=== PATIENT | male | born 1990 | race Caucasian/White ===

== ENCOUNTER 2018-01-04 19:19 | Emergency (ER) | payer OTHER ==
--- NOTE | 2018-01-04 20:09 | ER ---
Nurse's Notes [facility] Name: Seamus Cole Jr Age: 27 yrs Sex: Male : 1990 Arrival Date: 01/04/2018 Time: 19:23 Bed 25 Private MD: Diagnosis: Low back pain Presentation: 01/04 19:31 Presenting complaint: Patient states: Pain and numbness from lower back to groin and aj buttocks since Monday. Patient reports issue began after being adjusted by chiropractor last week. Transition of care: patient was not received from another setting of care. Onset of symptoms was January 01, 2018. Risk Assessment: Do you want to hurt yourself or someone else? Patient reports no desire to harm self or others. Initial Sepsis Screen: Does the patient meet any 2 criteria? No. Patient's initial sepsis screen is negative. Does the patient have a suspected source of infection? No. Patient's initial sepsis screen is negative. Care prior to arrival: None. 19:31 Method Of Arrival: Wheelchair aj 19:31 Acuity: KEESHA 3 aj Triage Assessment: 19:34 General: Appears in no apparent distress. comfortable, Behavior is calm, cooperative, aj appropriate for age. Pain: Complains of pain in buttocks, pelvis, right leg and left leg. Neuro: Level of Consciousness is awake, alert, obeys commands, Oriented to person, place, time, situation, Appropriate for age. Respiratory: Airway is patent Respiratory effort is even, unlabored, Respiratory pattern is regular, symmetrical. Derm: Skin is intact, is healthy with good turgor, Skin is pink, warm \T\ dry. normal. Musculoskeletal: Circulation, motion, and sensation intact. Reports numbness in buttocks, pelvis, right leg and left leg pain in buttocks, pelvis, right leg and left leg. Historical: - Allergies: 19:34 No Known Allergies; aj - Home Meds: 19:34 Naproxen Oral [Active]; methylprednisolone 4 mg Oral tab [Active]; Flexeril 10 mg Oral aj tab [Active]; - PMHx: 19:34 Herniated Discs; aj - PSHx: 19:34 None; aj - Immunization history:: Adult Immunizations up to date. - Social history:: Smoking status: Patient/guardian denies using tobacco. - Ebola Screening: : Patient negative for fever greater than or equal to 101.5 degrees Fahrenheit, and additional compatible Ebola Virus Disease symptoms Patient denies exposure to infectious person Patient denies travel to an Ebola-affected area in the 21 days before illness onset No symptoms or risks identified at this time. Screenin:41 Abuse screen: Denies threats or abuse. Denies injuries from another. Nutritional rv screening: No deficits noted. Tuberculosis screening: No symptoms or risk factors identified. Fall Risk None identified. Assessment: 19:40 General: Appears in no apparent distress. uncomfortable, Behavior is calm, cooperative. rv Pain: Complains of pain in back. Neuro: Level of Consciousness is awake, alert, obeys commands, Oriented to person, place, time, situation. Cardiovascular: Capillary refill < 3 seconds. Respiratory: Airway is patent. GI: No signs and/or symptoms were reported involving the gastrointestinal system. : No signs and/or symptoms were reported regarding the genitourinary system. EENT: No signs and/or symptoms were reported regarding the EENT system. Derm: Skin is intact. Vital Signs: 19:34 BP 154 / 101; Pulse 80; Resp 20; Temp 98.6; Pulse Ox 99% on R/A; Weight 113.4 kg; aj Height 6 ft. 2 in. (187.96 cm); 19:34 Body Mass Index 32.10 (113.40 kg, 187.96 cm) aj ED Course: 19:23 Patient arrived in ED. ds1 19:33 Triage completed. aj 19:34 Arm band placed on right wrist. Patient placed in an exam room. aj 19:38 [facility] kb 19:38 Kevon Recio MD is Attending Physician. kb 19:41 Patient has correct armband on for positive identification. Bed in low position. Call rv light in reach. Side rails up X 1. Adult w/ patient. Pulse ox on. NIBP on. 20:22 No provider procedures requiring assistance completed. Patient did not have IV access rv during this emergency room visit. Administered Medications: 20:13 Drug: [place] (7.5 mg-325 mg) 1 tabs Route: PO; rv 20:22 Follow up: Response: Medication administered at discharge. rv 20:13 Drug: TORadol 60 mg Route: IM; Site: left deltoid; rv 20:22 Follow up: Response: Medication administered at discharge. rv Outcome: 20:07 Discharge ordered by . celine 20:22 Discharged to home via wheelchair. rv 20:22 Condition: good 20:22 Discharge instructions given to patient, Instructed on discharge instructions, follow up and referral plans. Demonstrated understanding of instructions, follow-up care. 20:23 Patient left the ED. rv Signatures: Shirin Hernandez, FLATWORK PRESSER-C FLATWORK PRESSER-An Rose RN RN Rossy Wilkins ds1 Álvaro Hardin, RN RN rv
--- NOTE | 2018-01-04 20:09 | EDPHYS ---
Physician Documentation [facility] Name: Seamus Cole Jr Age: 27 yrs Sex: Male : 1990 Arrival Date: 01/04/2018 Time: 19:23 Bed 25 Private MD: ED Physician Kevon Recio HPI: 01/04 20:01 This 27 yrs old Male presents to ER via Wheelchair with complaints of Back kb Pain, Numbness - LEG. 20:01 The patient presents with pain that is acute, with no known mechanism of injury. The kb symptoms are located in the low back, coccyx area. Onset: The symptoms/episode began/occurred 1 month(s) ago, and became worse 5 day(s) ago. The pain radiates to the right leg and left leg. Associated signs and symptoms: Pertinent positives: numbness, tingling, Pertinent negatives: abdominal pain, chest pain, constipation, dysuria, fever, headache, hematuria, incontinence, nausea, urinary retention, vomiting, weakness. The problem was sustained without known cause. Modifying factors: The patient symptoms are alleviated by remaining still, the patient symptoms are aggravated by any movement. Severity of symptoms: At their worst the symptoms were moderate, in the emergency department the symptoms are unchanged. The patient has not experienced similar symptoms in the past. The patient has been recently seen by a physician: the patient's primary care provider, a chiropractor, yesterday, with similar presenting complaints. Pt reports he started having mild low back pain about a month ago. Pain got worse 5 days ago, numbness and tingling to groin area and lateral legs started 2 days ago. Has had adjustments by chiropractor 3 times since last week, last time was yesterday. Has seen PCP and x-rays completed. Pt has appt with Dr Stephenson tomorrow and is supposed to get MRI. Denies incontinence, fever, trauma. Pain and numbness get better with rest, worsen with activity. Pt was given prescriptions for steroids, muscle relaxants, and anti-inflammatories yesterday.. Historical: - Allergies: 19:34 No Known Allergies; aj - Home Meds: 19:34 Naproxen Oral [Active]; methylprednisolone 4 mg Oral tab [Active]; Flexeril 10 mg Oral aj tab [Active]; - PMHx: 19:34 Herniated Discs; aj - PSHx: 19:34 None; aj - Immunization history:: Adult Immunizations up to date. - Social history:: Smoking status: Patient/guardian denies using tobacco. - Ebola Screening: : Patient negative for fever greater than or equal to 101.5 degrees Fahrenheit, and additional compatible Ebola Virus Disease symptoms Patient denies exposure to infectious person Patient denies travel to an Ebola-affected area in the 21 days before illness onset No symptoms or risks identified at this time. ROS: 20:01 Constitutional: Negative for fever, chills, and weight loss, Cardiovascular: Negative kb for chest pain, palpitations, and edema, Respiratory: Negative for shortness of breath, cough, wheezing, and pleuritic chest pain, Abdomen/GI: Negative for abdominal pain, nausea, vomiting, diarrhea, and constipation, : Negative for injury, bleeding, discharge, and swelling, MS/Extremity: Negative for injury and deformity, Skin: Negative for injury, rash, and discoloration. 20:01 Back: Positive for pain with movement, Negative for injury or acute deformity, decreased range of motion, pain at rest, radiated pain. 20:01 Neuro: Positive for numbness, tingling, of the pelvis, right leg and left leg. Exam: 20:07 Constitutional: This is a well developed, well nourished patient who is awake, alert, kb and in no acute distress. Head/Face: Normocephalic, atraumatic. Chest/axilla: Normal chest wall appearance and motion. Nontender with no deformity. No lesions are appreciated. Cardiovascular: Regular rate and rhythm with a normal S1 and S2. No gallops, murmurs, or rubs. Normal PMI, no JVD. No pulse deficits. Respiratory: Lungs have equal breath sounds bilaterally, clear to auscultation and percussion. No rales, rhonchi or wheezes noted. No increased work of breathing, no retractions or nasal flaring. Abdomen/GI: Soft, non-tender, with normal bowel sounds. No distension or tympany. No guarding or rebound. No evidence of tenderness throughout. Back: No spinal tenderness. No costovertebral tenderness. Full range of motion. Skin: Warm, dry with normal turgor. Normal color with no rashes, no lesions, and no evidence of cellulitis. MS/ Extremity: Pulses equal, no cyanosis. Neurovascular intact. Full, normal range of motion. Neuro: Awake and alert, GCS 15, oriented to person, place, time, and situation. Cranial nerves II-XII grossly intact. Motor strength 5/5 in all extremities. Sensory grossly intact. Cerebellar exam normal. Normal gait. Vital Signs: 19:34 BP 154 / 101; Pulse 80; Resp 20; Temp 98.6; Pulse Ox 99% on R/A; Weight 113.4 kg; aj Height 6 ft. 2 in. (187.96 cm); 19:34 Body Mass Index 32.10 (113.40 kg, 187.96 cm) aj MDM: 19:38 Patient medically screened. kb 20:06 Data reviewed: vital signs, nurses notes. Data interpreted: Pulse oximetry: on room air kb is 99 %. Interpretation: normal. Counseling: I had a detailed discussion with the patient and/or guardian regarding: the historical points, exam findings, and any diagnostic results supporting the discharge/admit diagnosis, the need for outpatient follow up, a family practitioner, to return to the emergency department if symptoms worsen or persist or if there are any questions or concerns that arise at home. ED course: Pt does not have any numbness at this time. Able to ambulate. Educated to keep appt with Allysonn and need for outpatient MRI. . 20:11 ED course: Pt educated to return for worsening symptoms, incontinence, or any other kb concerns. . Administered Medications: 20:13 Drug: [place] (7.5 mg-325 mg) 1 tabs Route: PO; rv 20:22 Follow up: Response: Medication administered at discharge. rv 20:13 Drug: TORadol 60 mg Route: IM; Site: left deltoid; rv 20:22 Follow up: Response: Medication administered at discharge. rv Disposition: 01/05 03:11 Co-signature as Attending Physician, Kevon Recio MD available for consultation at ps1 all times. . Disposition: 01/04/18 20:07 Discharged to Home. Impression: Low back pain. - Condition is Stable. - Discharge Instructions: Back Injury Prevention, [id number], Back Pain, Adult, [id number], Sciatica, [id number], Back Exercises, [id number]. - Medication Reconciliation Form, Thank You Letter, Antibiotic Education, Prescription Opioid Use form. - Follow up: Emergency Department; When: As needed; Reason: Worsening of condition. Follow up: Private Physician; When: 2 - 3 days; Reason: Recheck today's complaints, Continuance of care, Re-evaluation by your physician. Signatures: Shirin Hernandez, HALEY-C CLEANING ATTENDANT-An Rose, RN RN Kevon Zavala MD MD ps1 Vicente, Ronaldo, RN RN rv Corrections: (The following items were deleted from the chart) 01/04 20:08 20:01 Pt reports he started having mild low back pain about a month ago. Pain got worse kb 5 days ago, numbness and tingling to groin area and lateral legs started 2 days ago. Has had adjustments by chiropractor 3 times since last week, last time was yesterday. Has seen PCP and x-rays completed. Pt has appt with Dr Stephenson tomorrow and is supposed to get MRI. Denies incontinence, fever, trauma. Pain and numbness get better with rest, worsen with activity. kb 20:23 20:07 01/04/2018 20:07 Discharged to Home. Impression: Low back pain. Condition is rv Stable. Forms are Medication Reconciliation Form, Thank You Letter, Antibiotic Education, Prescription Opioid Use. Follow up: Emergency Department; When: As needed; Reason: Worsening of condition. Follow up: Private Physician; When: 2 - 3 days; Reason: Recheck today's complaints, Continuance of care, Re-evaluation by your physician. kb
[2018-01-04] MEDS ORDERED: KETOROLAC 30 MG/ML INJ ONE (20:17)
[2018-01-04] MEDS ORDERED: HYDROCODONE/APAP 7.5/325 MG TAB ONE (20:17)
== END 2018-01-04 20:23 | disposition home or self-care (01) ==
LOC: ER 19:19
DX: M54.5 Low back pain (principal)
CPT/HCPCS: 96372; 99283